=== PATIENT | male | born 1970 ===

== ENCOUNTER 2022-05-07 13:43 | Inpatient (IN) ==
[2022-05-07] MEDS ORDERED: SODIUM CHLORIDE 0.9% 1,000 ML IV STA ×2 (14:13→14:54)
[2022-05-07 14:20] LABS: Basophils % 0.2 % (0.0-0.8); Hematocrit 37.3 VOL% (42.0-52.0); Hemoglobin 11.9 GM/DL (14.0-18.0); Immature Granulocytes % 0.9 %; Immature Granulocytes Absolute 0.11 #; Lymphocytes # 1.6 10*3/uL (1.4-4.0); Lymphocytes % 12.8 % (21.2-54.2); Mean Corpuscular HGB Conc 31.9 GM/DL (32-36); Mean Corpuscular Volume 81.4 FL (87-102); Mean Platelet Volume 13.9 FL (9.6-12.0); Monocytes # 1.9 10*3/uL (0.11-0.8); Monocytes % 14.5 % (1.7-12.7); Neutrophils % 71.6 % (38.7-73.9); Platelet Count 180 T/CUMM (130-400); Red Blood Count 4.58 MC/CUMM (3.8-5.5); Red Cell Distribution Width 16.4 % (9.3-17.3); White Blood Count 12.8 T/CUMM (4-12)
[2022-05-07 14:38] LABS: Alanine Aminotransferase 10 U/L (16-61); Albumin 2.7 G/DL (3.4-5.0); Alkaline Phosphatase 72 U/L (45-117); Aspartate Amino Transferase 10 U/L (0-37); Blood Urea Nitrogen 36 MG/DL (7-18); Calcium 8.7 MG/DL (8.5-10.1); Carbon Dioxide 25 MMOL/L (21-32); Chloride 95 MMOL/L (98-107); Glucose 126 MG/DL (74-106); Osmolality,Calculated 271.7 MOS/KG (273-304); Sodium 131 MMOL/L (136-145); Total Protein 8.2 G/DL (6.4-8.2)
[2022-05-07 15:04] LABS: Lymphocytes 11 % (20-55); Total Cells Counted 100
[2022-05-07] MEDS ORDERED: ALBUTEROL/IPRATROPIUM 3 ML NEB RESP TX PRN (15:31)
[2022-05-07] MEDS ORDERED: HYDROmorphone 1 MG/1 ML SYRINGE IV PRN (15:31)
[2022-05-07] MEDS ORDERED: ONDANSETRON 4 MG/2 ML VIAL IV PRN (15:31)
[2022-05-07] MEDS ORDERED: BISACODYL 5 MG TABLET PO PRN (15:31)
[2022-05-07] MEDS ORDERED: ACETAMINOPHEN 325 MG TABLET PO PRN (15:31)
[2022-05-07 17:26] LABS: Mucus,Urine Occasional /LPF (Occasional); RBC,Urine <1 /HPF (0-4); Squamous Epithelial Cell,Urine Occasional /HPF (0-10)
[2022-05-07 17:28] LABS: Bilirubin,Urine Negative (Negative); Blood, Urine Negative (Negative); Glucose,Urine (UA) Negative (Negative); Ketones,Urine Negative (Negative); Nitrite,Urine Negative (Negative); Protein,Urine Negative (Negative); Urine Appearance Clear (Clear); Urine Color Yellow (Yellow); Urine Specific Gravity 1.015 (1.001-1.035); Urine pH 5.5 (4.5-8.0)
[2022-05-07 17:29] LABS: Urine Urobilinogen 0.2 eU/dL (<2.0)
[2022-05-07] MEDS: LACTATED RINGERS 1,000 ML IV SCH ×2 (18:22→22:30)
[2022-05-08] MEDS: LACTATED RINGERS 1,000 ML IV SCH ×5 (02:29→18:37)
[2022-05-08 06:19] LABS: Basophils % 0.2 % (0.0-0.8); Eosinophils % 0.1 % (0.00-10.9); Hematocrit 30.7 VOL% (42.0-52.0); Hemoglobin 9.8 GM/DL (14.0-18.0); Immature Granulocytes % 0.7 %; Immature Granulocytes Absolute 0.07 #; Lymphocytes # 1.3 10*3/uL (1.4-4.0); Lymphocytes % 12.4 % (21.2-54.2); Mean Corpuscular HGB Conc 31.9 GM/DL (32-36); Mean Corpuscular Volume 82.5 FL (87-102); Mean Platelet Volume 13.7 FL (9.6-12.0); Monocytes # 1.6 10*3/uL (0.11-0.8); Monocytes % 15.8 % (1.7-12.7); Neutrophils % 70.8 % (38.7-73.9); Platelet Count 147 T/CUMM (130-400); Red Blood Count 3.72 MC/CUMM (3.8-5.5); Red Cell Distribution Width 16.5 % (9.3-17.3); White Blood Count 10.3 T/CUMM (4-12)
[2022-05-08 06:22] LABS: Calcium 8.1 MG/DL (8.5-10.1); Osmolality,Calculated 278.1 MOS/KG (273-304); Potassium 4.3 MMOL/L (3.5-5.1)
[2022-05-08 06:41] LABS: Band Neutrophils 1 % (0-10); Lymphocytes 17 % (20-55); Total Cells Counted 100
[2022-05-08 06:42] LABS: Hypochromia 1+; Microcytosis 1+; Ovalocytes Slight
[2022-05-08] MEDS ORDERED: DEXTROSE 10% 250 ML BAG IV PRN (07:45)
[2022-05-08] MEDS ORDERED: GLUCAGON 1 MG VIAL IM PRN (07:45)
[2022-05-08] MEDS ORDERED: ATORVASTATIN 20 MG TABLET PO SCH (09:00)
[2022-05-08] MEDS ORDERED: PANTOPRAZOLE 40 MG TABLET PO SCH (09:00)
[2022-05-08 11:35] VITALS: BP 104/51
[2022-05-08] MEDS ORDERED: ALBUMIN 25% 25 GM/100 ML VIAL IV ONE (14:00)
[2022-05-08] MEDS ORDERED: SODIUM BICARBONATE 50 MEQ/50 ML VIAL IV ONE ×2 (16:21→19:06)
[2022-05-08 16:23] LABS: ABG Base Excess -9.5 MMOL/L (-2.5-2.5); ABG HCO3 16.4 MMOL/L (20-26); ABG Oxygen Saturation 70.2 % (95-100); ABG PCO2 64.5 MM HG (35-48); ABG PO2 50.5 MM HG (80-95); ABG TCO2 19.9 MMOL/L (23-27)
[2022-05-08] MEDS ORDERED: PHENYLEPHRINE DRIP 40 MG/250 ML PREMIX IV ONE (16:26)
[2022-05-08] MEDS: PHENYLEPHRINE DRIP 40 MG/250 ML PREMIX IV PRN ×2 (16:27→18:38)
[2022-05-08] MEDS ORDERED: HEPARIN 5,000 UNIT/1 ML VIAL IV ONE (16:33)
[2022-05-08 16:35] LABS: Basophils % 0.2 % (0.0-0.8); Eosinophils % 0.2 % (0.00-10.9); Hematocrit 30.9 VOL% (42.0-52.0); Hemoglobin 9.4 GM/DL (14.0-18.0); Immature Granulocytes % 3.4 %; Immature Granulocytes Absolute 0.34 #; Lymphocytes # 2.4 10*3/uL (1.4-4.0); Lymphocytes % 23.9 % (21.2-54.2); Mean Corpuscular HGB Conc 30.4 GM/DL (32-36); Mean Corpuscular Volume 86.1 FL (87-102); Mean Platelet Volume 13.8 FL (9.6-12.0); Monocytes # 0.8 10*3/uL (0.11-0.8); Monocytes % 7.8 % (1.7-12.7); Neutrophils % 64.5 % (38.7-73.9); Platelet Count 134 T/CUMM (130-400); Red Blood Count 3.59 MC/CUMM (3.8-5.5); Red Cell Distribution Width 16.6 % (9.3-17.3); White Blood Count 10.1 T/CUMM (4-12)
[2022-05-08 16:35] LABS: ABG PH 7.114 (7.35-7.45)
[2022-05-08] MEDS: HEPARIN DRIP 25,000 UNITS/500 ML PREMIX IV SCH (16:46)
[2022-05-08 16:47] LABS: PT Patient Result 11.3 SECS (10.1-12.1); Partial Thromboplastin Time 27.9 SECS (23.7-32.9)
[2022-05-08 17:03] LABS: Alanine Aminotransferase 15 U/L (16-61); Albumin 2.2 G/DL (3.4-5.0); Alkaline Phosphatase 72 U/L (45-117); Aspartate Amino Transferase 26 U/L (0-37); Blood Urea Nitrogen 44 MG/DL (7-18); Calcium 8.1 MG/DL (8.5-10.1); Carbon Dioxide 21 MMOL/L (21-32); Chloride 95 MMOL/L (98-107); Glucose 191 MG/DL (74-106); Potassium 3.4 MMOL/L (3.5-5.1); Sodium 136 MMOL/L (136-145); Total Protein 6.8 G/DL (6.4-8.2)
[2022-05-08 17:20] LABS: Burr Cells 2+
[2022-05-08 17:21] LABS: Hypochromia Slight
[2022-05-08] MEDS: HYDROCORTISONE 100 MG VIAL IV SCH ×2 (17:21→23:26)
[2022-05-08 17:22] LABS: Platelet Estimate Normal
[2022-05-08] MEDS: VALPROIC ACID INJ 500 MG in SODIUM CHLORIDE 0.9% 100 ML IV SCH (17:26)
[2022-05-08] MEDS ORDERED: LACTATED RINGERS 1,000 ML IV SCH (18:57)
[2022-05-08 19:04] LABS: ABG Base Excess -6.3 MMOL/L (-2.5-2.5); ABG HCO3 19.3 MMOL/L (20-26); ABG Oxygen Saturation 97.6 % (95-100); ABG PCO2 43.3 MM HG (35-48); ABG PH 7.278 (7.35-7.45); ABG TCO2 18.7 MMOL/L (23-27)
[2022-05-08] MEDS: PHENYLEPHRINE INJ 160 MG in SODIUM CHLORIDE 0.9% 234 ML IV PRN (19:39)
[2022-05-08] MEDS ORDERED: DIVALPROEX ER 500 MG TABLET PO SCH (21:00)
[2022-05-08] MEDS: SODIUM CHLORIDE 0.9% 1,000 ML IV SCH (21:35)
[2022-05-08] MEDS: INSULIN LISPRO 100 UNIT/ML SUBCUT SCH (23:26)
[2022-05-08 23:50] LABS: INR 1.1
[2022-05-08 23:52] LABS: Partial Thromboplastin Time 123.6 SECS (23.7-32.9)
[2022-05-09] MEDS: PHENYLEPHRINE INJ 160 MG in SODIUM CHLORIDE 0.9% 234 ML IV PRN (01:51)
[2022-05-09] MEDS: ACETAMINOPHEN 325 MG/10.15 ML UDCUP PO PRN ×2 (04:07→20:16)
[2022-05-09 04:18] LABS: Osmolality,Calculated 287.1 MOS/KG (273-304); Potassium 3.4 MMOL/L (3.5-5.1)
[2022-05-09 04:55] LABS: ABG Base Excess -0.2 MMOL/L (-2.5-2.5); ABG HCO3 24.3 MMOL/L (20-26); ABG Oxygen Saturation 99.8 % (95-100); ABG PCO2 34.3 MM HG (35-48); ABG PH 7.442 (7.35-7.45); ABG TCO2 21.2 MMOL/L (23-27)
[2022-05-09] MEDS: VALPROIC ACID INJ 500 MG in SODIUM CHLORIDE 0.9% 100 ML IV SCH ×2 (05:35→18:34)
[2022-05-09] MEDS: HYDROCORTISONE 100 MG VIAL IV SCH ×4 (05:37→22:45)
[2022-05-09] MEDS: NOREPINEPHRINE 8 MG in SODIUM CHLORIDE 0.9% 242 ML IV PRN (05:40)
[2022-05-09] MEDS: HEPARIN DRIP 25,000 UNITS/500 ML PREMIX IV SCH ×3 (05:50→20:29)
[2022-05-09] MEDS: INSULIN LISPRO 100 UNIT/ML SUBCUT SCH ×4 (06:11→23:39)
[2022-05-09 06:56] LABS: Basophils % 0.1 % (0.0-0.8); Hematocrit 31.3 VOL% (42.0-52.0); Hemoglobin 10.1 GM/DL (14.0-18.0); Immature Granulocytes % 1.3 %; Immature Granulocytes Absolute 0.19 #; Lymphocytes # 0.4 10*3/uL (1.4-4.0); Mean Corpuscular HGB Conc 32.3 GM/DL (32-36); Mean Corpuscular Volume 79.8 FL (87-102); Mean Platelet Volume 14.2 FL (9.6-12.0); Monocytes # 1.3 10*3/uL (0.11-0.8); Monocytes % 8.9 % (1.7-12.7); Neutrophils % 86.7 % (38.7-73.9); Platelet Count 186 T/CUMM (130-400); Red Blood Count 3.92 MC/CUMM (3.8-5.5); Red Cell Distribution Width 16.4 % (9.3-17.3); White Blood Count 14.3 T/CUMM (4-12)
[2022-05-09 07:50] LABS: Hypochromia Slight; Lymphocytes 3 % (20-55); Microcytosis Slight; Platelet Estimate Adequate; Total Cells Counted 100
[2022-05-09] MEDS ORDERED: MAGNESIUM SULF RIDER 2 GM/50 ML PREMIX IV ONE (08:43)
[2022-05-09] MEDS ORDERED: MAGNESIUM SULF RIDER 2 GM/50 ML PREMIX IV PRN (08:47)
[2022-05-09] MEDS ORDERED: MAGNESIUM SULF RIDER 4 GM/100 ML PREMIX IV PRN (08:47)
[2022-05-09] MEDS: PANTOPRAZOLE 40 MG VIAL IV SCH (08:47)
[2022-05-09] MEDS ORDERED: POTASSIUM CHLORIDE RIDER 10 MEQ/100 ML PREMIX IV PRN (08:47)
[2022-05-09] MEDS ORDERED: POTASSIUM CHLORIDE RIDER 20 MEQ/100 ML PREMIX IV PRN (08:47)
[2022-05-09] MEDS ORDERED: FUROSEMIDE INJ 240 MG in SODIUM CHLORIDE 0.9% 50 ML IV ONE (09:30)
[2022-05-09 10:23] LABS: Hepatitis B Core IgM Quant 0.16 Index; Hepatitis B Surface Ag Quant < 0.10 Index; Hepatitis B Surface Ag Result Non-Reactive (NonReactive); Hepatitis C Virus Ab Result Non-Reactive (NonReactive)
[2022-05-09] MEDS ORDERED: HEPARIN 10,000 UNIT/10 ML VIAL IV PRN (17:35)
[2022-05-09] MEDS: SODIUM CHLORIDE 0.9% 1,000 ML IV SCH (17:41)
[2022-05-09 20:37] LABS: INR 1.1; PT Patient Result 11.7 SECS (10.1-12.1); Partial Thromboplastin Time 94.2 SECS (23.7-32.9)
[2022-05-10] MEDS: ACETAMINOPHEN 325 MG/10.15 ML UDCUP PO PRN (02:44)
[2022-05-10 03:20] LABS: INR 1.1; PT Patient Result 11.9 SECS (10.1-12.1); Partial Thromboplastin Time 88.3 SECS (23.7-32.9)
[2022-05-10 04:22] LABS: ABG HCO3 27.1 MMOL/L (20-26); ABG Oxygen Saturation 99.2 % (95-100); ABG PCO2 33.1 MM HG (35-48); ABG PH 7.503 (7.35-7.45); ABG TCO2 23.8 MMOL/L (23-27)
[2022-05-10 04:27] LABS: Basophils % 0.1 % (0.0-0.8); Hematocrit 26.9 VOL% (42.0-52.0); Hemoglobin 9.1 GM/DL (14.0-18.0); Immature Granulocytes % 1.1 %; Immature Granulocytes Absolute 0.14 #; Lymphocytes # 0.6 10*3/uL (1.4-4.0); Lymphocytes % 4.5 % (21.2-54.2); Mean Corpuscular HGB Conc 33.8 GM/DL (32-36); Mean Corpuscular Volume 77.3 FL (87-102); Monocytes # 1.2 10*3/uL (0.11-0.8); Monocytes % 9.3 % (1.7-12.7); Platelet Count 183 T/CUMM (130-400); Red Blood Count 3.48 MC/CUMM (3.8-5.5); Red Cell Distribution Width 15.8 % (9.3-17.3); White Blood Count 12.6 T/CUMM (4-12)
[2022-05-10 04:46] LABS: Calcium 7.7 MG/DL (8.5-10.1); Hypochromia Slight; Microcytosis Slight; Osmolality,Calculated 290.4 MOS/KG (273-304); Platelet Estimate Adequate; Potassium 3.6 MMOL/L (3.5-5.1)
[2022-05-10] MEDS: VALPROIC ACID INJ 500 MG in SODIUM CHLORIDE 0.9% 100 ML IV SCH ×2 (04:53→17:19)
[2022-05-10] MEDS: HYDROCORTISONE 100 MG VIAL IV SCH (04:54)
[2022-05-10] MEDS: INSULIN LISPRO 100 UNIT/ML SUBCUT SCH ×3 (05:19→17:57)
[2022-05-10] MEDS ORDERED: FUROSEMIDE 100 MG/10 ML VIAL IV ONE (08:26)
[2022-05-10 09:04] LABS: INR 1.1; PT Patient Result 11.9 SECS (10.1-12.1)
[2022-05-10 09:06] LABS: Partial Thromboplastin Time 103.3 SECS (23.7-32.9)
[2022-05-10] MEDS: PANTOPRAZOLE 40 MG VIAL IV SCH (09:36)
[2022-05-10] MEDS ORDERED: DEXTROSE 10% 250 ML BAG IV PRN (09:38)
[2022-05-10] MEDS ORDERED: GLUCAGON 1 MG VIAL IM PRN (09:38)
[2022-05-10] MEDS: DEXAMETHASONE 4 MG/1 ML VIAL IV SCH ×2 (11:50→17:19)
[2022-05-10] MEDS: ENOXAPARIN 30 MG/0.3 ML SYRINGE SUBCUT SCH (11:50)
[2022-05-10] MEDS ORDERED: HYDROCORTISONE 100 MG VIAL IV SCH (13:00)
[2022-05-10 20:43] LABS: PT Patient Result 11.1 SECS (10.1-12.1); Partial Thromboplastin Time 26.4 SECS (23.7-32.9)
[2022-05-10] MEDS: NOREPINEPHRINE 8 MG in SODIUM CHLORIDE 0.9% 242 ML IV PRN (21:01)
[2022-05-11] MEDS: DEXAMETHASONE 4 MG/1 ML VIAL IV SCH ×5 (00:35→23:55)
[2022-05-11] MEDS: INSULIN LISPRO 100 UNIT/ML SUBCUT SCH ×5 (00:41→23:45)
[2022-05-11 05:04] LABS: ABG HCO3 28.9 MMOL/L (20-26); ABG Oxygen Saturation 98.8 % (95-100); ABG PCO2 42.2 MM HG (35-48); ABG PH 7.451 (7.35-7.45); ABG TCO2 27.1 MMOL/L (23-27)
[2022-05-11 05:06] LABS: Basophils % 0.1 % (0.0-0.8); Hemoglobin 8.7 GM/DL (14.0-18.0); Immature Granulocytes % 1.6 %; Immature Granulocytes Absolute 0.22 #; Lymphocytes # 0.5 10*3/uL (1.4-4.0); Lymphocytes % 3.4 % (21.2-54.2); Mean Corpuscular HGB Conc 33.5 GM/DL (32-36); Mean Corpuscular Volume 79.5 FL (87-102); Mean Platelet Volume 12.4 FL (9.6-12.0); Monocytes # 1.2 10*3/uL (0.11-0.8); Monocytes % 8.7 % (1.7-12.7); Neutrophils % 86.2 % (38.7-73.9); Platelet Count 202 T/CUMM (130-400); Red Blood Count 3.27 MC/CUMM (3.8-5.5); Red Cell Distribution Width 15.8 % (9.3-17.3)
[2022-05-11 05:19] LABS: Calcium 7.9 MG/DL (8.5-10.1); Osmolality,Calculated 296.3 MOS/KG (273-304); Potassium 3.9 MMOL/L (3.5-5.1)
[2022-05-11 05:23] LABS: Hypochromia Slight; Lymphocytes 6 % (20-55); Platelet Estimate Adequate; Total Cells Counted 100
[2022-05-11 05:24] LABS: Microcytosis Slight
[2022-05-11] MEDS: VALPROIC ACID INJ 500 MG in SODIUM CHLORIDE 0.9% 100 ML IV SCH ×2 (05:34→18:04)
[2022-05-11] MEDS ORDERED: MANNITOL 100 GM/500 ML BAG IV ONE (08:31)
[2022-05-11] MEDS: PANTOPRAZOLE 40 MG VIAL IV SCH (09:05)
[2022-05-11] MEDS: CLINDAMYCIN INJ 600 MG/50 ML PREMIX IV SCH ×2 (11:35→20:09)
[2022-05-11] MEDS: ENOXAPARIN 30 MG/0.3 ML SYRINGE SUBCUT SCH (11:35)
[2022-05-12] MEDS: CLINDAMYCIN INJ 600 MG/50 ML PREMIX IV SCH (03:35)
[2022-05-12 03:47] LABS: Basophils % 0.1 % (0.0-0.8); Hematocrit 27.1 VOL% (42.0-52.0); Hemoglobin 8.8 GM/DL (14.0-18.0); Immature Granulocytes % 4.2 %; Immature Granulocytes Absolute 0.62 #; Lymphocytes # 0.5 10*3/uL (1.4-4.0); Lymphocytes % 3.4 % (21.2-54.2); Mean Corpuscular HGB Conc 32.5 GM/DL (32-36); Mean Corpuscular Volume 80.7 FL (87-102); Mean Platelet Volume 11.8 FL (9.6-12.0); Monocytes # 1.4 10*3/uL (0.11-0.8); Monocytes % 9.2 % (1.7-12.7); NRBC # 0.04 10*3/uL; Neutrophils % 83.1 % (38.7-73.9); Platelet Count 224 T/CUMM (130-400); Red Blood Count 3.36 MC/CUMM (3.8-5.5); Red Cell Distribution Width 15.9 % (9.3-17.3); White Blood Count 14.9 T/CUMM (4-12)
[2022-05-12 03:49] LABS: ABG Base Excess 6.2 MMOL/L (-2.5-2.5); ABG Oxygen Saturation 96.5 % (95-100); ABG PCO2 37.2 MM HG (35-48); ABG PH 7.509 (7.35-7.45); ABG PO2 82.3 MM HG (80-95); ABG TCO2 27.3 MMOL/L (23-27)
[2022-05-12 04:05] LABS: Calcium 8.3 MG/DL (8.5-10.1); Osmolality,Calculated 302.3 MOS/KG (273-304); Potassium 3.5 MMOL/L (3.5-5.1)
[2022-05-12 04:07] LABS: Hypochromia Slight; Lymphocytes 6 % (20-55); Microcytosis Slight; Nucleated Red Blood Cells 1 /100 WBC (0-5); Platelet Estimate Adequate; Total Cells Counted 100
[2022-05-12] MEDS: DEXAMETHASONE 4 MG/1 ML VIAL IV SCH (06:13)
[2022-05-12] MEDS: INSULIN LISPRO 100 UNIT/ML SUBCUT SCH (06:14)
[2022-05-12] MEDS: VALPROIC ACID INJ 500 MG in SODIUM CHLORIDE 0.9% 100 ML IV SCH (06:15)
[2022-05-12] MEDS ORDERED: LORazepam 2 MG/1 ML VIAL ONE (07:40)
[2022-05-12] MEDS ORDERED: LORazepam 2 MG/1 ML VIAL IV ONE (07:51)
[2022-05-12] MEDS: PANTOPRAZOLE 40 MG VIAL IV SCH (08:30)
[2022-05-12] MEDS: ENOXAPARIN 30 MG/0.3 ML SYRINGE SUBCUT SCH (10:18)
[2022-05-12] MEDS ORDERED: LORazepam 2 MG/1 ML VIAL IV PRN (10:28)
[2022-05-12] MEDS: MORPHINE 2 MG/1 ML SYRINGE IV PRN ×3 (18:32→23:36)
[2022-05-13] MEDS: MORPHINE 2 MG/1 ML SYRINGE IV PRN (07:43)
== END 2022-05-13 10:12 | disposition expired | DRG 682 ==
LOC: N.ED 13:43 → N.3E 15:31 → N.ICU 05-08 16:14
PROVIDERS: ADMIT Surgery; ATTEND Surgery